=== PATIENT | male | born 1985 | race African-American/Black ===

== ENCOUNTER 2018-08-29 00:29 | Emergency (ER) | payer OTHER ==
[~2018-08-29] VITALS: Ht 177.8 cm; Wt 84.0 kg
[2018-08-29 00:36] VITALS: BP 121/76
== END 2018-08-29 03:53 | disposition left against medical advice (07) ==
LOC: ER 00:29
DX: Z53.21 Procedure and treatment not carried out due to patient leaving prior to being seen by health care provider (principal)